=== PATIENT | female | born 1955 | race Caucasian/White ===

== ENCOUNTER → 2017-10-13 | Outpatient (CLI) | payer OTHER ==
[2017-10-13 12:03] LABS: BASO % 0.4 %; BASO ABS # 0.02 K/uL (0-0.2); COMPLETE YES; EOS % 3.4 %; IG% 0.2 %; LYMPH % 36.1 %; LYMPH ABS # 1.81 K/uL (1.2-3.4); MEAN CORPUSCULAR HEMOGLOBIN 30.3 pg (25-34); MEAN PLATELET VOLUME 10.8 fL (7.4-10.4); MONO % 7.2 %; NEUT % 52.7 %; PLATELET COUNT 257 K/uL (130-400); RED BLOOD COUNT 4.35 M/uL (4.2-5.4); WHITE BLOOD COUNT 5.01 K/uL (4.8-10.8)
[2017-10-13 12:48] LABS: BLOOD UREA NITROGEN 19 mg/dl (7-18); BUN/CREATININE RATIO 21.6 (10-20); CALCIUM 9.4 mg/dl (8.5-10.1); CARBON DIOXIDE 28 mmol/L (21-32); CHLORIDE 106 mmol/L (98-107); CREATININE 0.86 mg/dl (0.60-1.20); GLUCOSE 99 mg/dl (70-99); POTASSIUM 3.8 mmol/L (3.5-5.1); SODIUM 139 mmol/L (136-145)
[2017-10-13 12:59] LABS: CHOLESTEROL 275 mg/dl (0-200); CHOLESTEROL/HDL RATIO 2.7; HDL CHOLESTEROL 103 mg/dl; LDL CHOLESTEROL CALCULATED 146 mg/dl; TRIGLYCERIDES 129 mg/dl (0-150); VERY LOW DENSITY LIPOPROT CALC 26 mg/dl
== END | disposition home or self-care (01) ==
LOC: C.LAB1850 10:03
PROVIDERS: ATTEND Nurse Practitioner Adult Health
DX: E78.5 Hyperlipidemia, unspecified (principal); E53.9 Vitamin B deficiency, unspecified; E55.9 Vitamin D deficiency, unspecified; M81.0 Age-related osteoporosis without current pathological fracture; M25.50 Pain in unspecified joint

== ENCOUNTER → 2017-11-20 | Outpatient (CLI) | payer OTHER | END | disposition home or self-care (01) | LOC: C.MAMM 10:26 | PROVIDERS: ATTEND Nurse Practitioner Adult Health | DX: M85.88 Other specified disorders of bone density and structure, other site (principal); M85.852 Other specified disorders of bone density and structure, left thigh; M85.851 Other specified disorders of bone density and structure, right thigh; M19.90 Unspecified osteoarthritis, unspecified site; M25.50 Pain in unspecified joint ==

== ENCOUNTER → 2017-11-27 | Outpatient (CLI) | payer OTHER ==
[2017-11-27 10:30] LABS: URINE TOTAL VOLUME 1050 mL
[2017-11-27 14:22] LABS: URINE COLLECTION TIME 24 HOURS
[2017-11-27 14:22] LABS: URINE CALCIUM 24 HOUR (PT) 241.5 mg/24 HR (42-353); URINE TOTAL VOLUME 1050 mL
== END | disposition home or self-care (01) ==
LOC: C.LAB1850 10:17
DX: E55.9 Vitamin D deficiency, unspecified (principal); M81.0 Age-related osteoporosis without current pathological fracture; E61.8 Deficiency of other specified nutrient elements; M79.673 Pain in unspecified foot

== ENCOUNTER → 2017-12-02 | Outpatient (CLI) | payer OTHER ==
--- NOTE | 2017-12-03 15:40 | MAMMOGRAPHY REPORT ---
BILATERAL DIGITAL SCREENING MAMMOGRAM TOMOSYNTHESIS WITH CAD: 12/02/2017 CLINICAL HISTORY: Routine screening. Patient has no complaints. TECHNIQUE: Breast tomosynthesis in addition to standard 2D mammography was performed. Current study was also evaluated with a Computer Aided Detection (CAD) system. COMPARISON: No prior exams were available for comparison. BREAST COMPOSITION: There are scattered areas of fibroglandular density in both breasts. FINDINGS: No suspicious mass, architectural distortion or cluster of microcalcifications is seen. IMPRESSION: ACR BI-RADS CATEGORY 1: NEGATIVE There is no mammographic evidence of malignancy. Prior outside mammograms are currently being reques den and if obtained they will be reviewed, compared to the current exam to assess for any more subtle changes, and an addendum will be made to this report. Otherwise, a 1 year screening mammogram is re commended. The patient will receive written notification of the results. Approximately 10% of breast cancers are not detected with mammography. A negative mammographic report should not delay biopsy if a clinically suggestive mass is present. Cecelia Grande M.D. ay/:12/02/2017 17:01:26 Billet Cutter: Imani EDWARDS)([place]), [facility] letter sent: Normal 1/2 BI-RADS Code: ACR BI-RADS Category 1: Negative
== END | disposition home or self-care (01) ==
LOC: C.MAMM 14:28
PROVIDERS: ATTEND Obstetrics & Gynecology
DX: Z12.31 Encounter for screening mammogram for malignant neoplasm of breast (principal)

== ENCOUNTER → 2018-02-10 | Outpatient (CLI) | payer OTHER | END | disposition home or self-care (01) | LOC: C.PAPS 12:05 | PROVIDERS: ATTEND Obstetrics & Gynecology | DX: Z12.4 Encounter for screening for malignant neoplasm of cervix (principal) ==

== ENCOUNTER → 2018-06-10 | Day surgery (SDC) | payer OTHER ==
[2018-06-02 08:36] VITALS: Ht 157.5 cm; Wt 63.6 kg
[~2018-06-10] VITALS: Ht 157.5 cm; Wt 63.6 kg
[~2018-06-10] MED LIST: ASCO10003 PO; BIOTCAP2 PO; CALC-51 PO; CHOL1000 PO; CLR10 PO; COEN400C5 PO; FLUT0.15 INTNAS; GARL10007 PO; LIDOCAINE HCL 2% 2 ML VIAL (20MG/ML) ONE; MAGN400T6 PO; MULT-190 PO; OMEG10007 PO; PREMARIN TOP; PROPOFOL IV EMULSION 10 MG/ML 20 ML VIAL ONE; RED YEAST RICE PO; SODIUM CHLORIDE 0.9% 500ML 500 ML IV ONE; TURM1CAP4 PO; VITAMIN B 12 INJ
--- NOTE | 2018-06-10 11:46 | Endo History and Physical ---
History & Physical Date of Service: Jun 10, 2018. Chief Complaint: Change in bowel habits Referring Physician: Shelby Woodson History of Present Illness 62 yo CF who presents for colonoscopy secondary to change in bowel habits. Past Surgical History Hx Cardiac Surgery: No Hx Internal Defibrillator: No Hx Pacemaker: No Hx Abdominal Surgery: Yes (APPENDECTOMY, C SECTION X 2,LAPAROSCOPY,TUMMY TUCK) Hx of Implantable Prosthesis: No Hx Post-Op Nausea and Vomiting: Yes (SEVERE PONV) Hx Cancer Surgery: No Hx Thoracic Surgery: No Hx Orthopedic: No Hx Urinary Tract Surgery: No Family History IBD Social History Smoking Status: Former Smoker Hx Substance Use: No Hx Alcohol Use: Yes (DAILY WINE ) Allergies Coded Allergies: Cinnamon (Verified Allergy, Unknown, TINGLING IN MOUTH,CONGESTION, 06/10/18) Hydrocodone (Verified Allergy, Unknown, LOW BP,NAUSEA,SHAKINESS,COLD, ) Unclassified Drugs (Verified Allergy, Unknown, KETCHUP,MUSTARD-TINGLING IN MOUTH, 06/10/18) Current Medications Reported Home Medications Medications Dose Route/Sig Max Daily Dose Days Date Category Dose Instructions Vitamin D3 (Cholecalciferol) 1,000 Unit Tab 5,000 Units PO QAM 90 06/02/18 Reported Vitamin C (Ascorbic Acid) 1,000 Mg Tab 1,000 Mg PO QAM 06/02/18 Reported [place]-3 (Fish Oil) 1 Ea Cap 1 Cap PO QAM 06/02/18 Reported Garlic 1,000 Mg Cap 1,000 Mg PO QAM 06/02/18 Reported Coq10 (Coenzyme Q10 (Ubidecarenone)) 400 Mg Cap 400 Mg PO QAM 06/02/18 Reported [Premarin Cr] 1 Dose TOP WEEKLY 06/02/18 Reported VAGINAL CREAM Flonase Allergy Relief (Fluticasone Propionate (Nasal)) 50 Mcg/Act Spr 1 [place] INTNAS QAM 06/02/18 Reported Claritin (Loratadine) 10 Mg Tab 10 Mg PO QAM 06/02/18 Reported Turmeric (Turmeric (Curcuma Longa)) 500 Mg Cap 1,000 Mg PO QAM 06/02/18 Reported Biotin 5000 (Biotin) 5 Mg Cap 10,000 Mcg PO QAM 06/02/18 Reported [Calcium] 600 Mg PO QAM 06/02/18 Reported Mag-Ox (Magnesium Oxide) 400 Mg Tab 400 Mg PO QAM 06/02/18 Reported [Red Yeast Rice] 2 Tab PO QAM 06/02/18 Reported Ocuvite Preservision (Multivitamins/Minerals) 1 Tab Tab 1 Tab PO QAM 06/02/18 Reported [Vitamin B 12] 1 Dose INJ QMONTH 06/02/18 Reported Vital Signs Weight (Kilograms): 63.64 Height (Feet): 5 Height (Inches): 2 Physical Exam General Appearance: WD/WN, no apparent distress Respiratory/Chest: Auscultation: breath sounds normal Cardiovascular: Heart Auscultation: RRR Abdomen: Bowel Sounds: normal Inspection & Palpation: soft, non-distended, no tenderness, guarding & rebound Assessment and Plan Assessment: 62 yo CF who presents for colonoscopy secondary to change in bowel habits. Plan: Proceed with colonoscopy.
[2018-06-10 11:53] VITALS: TEMP 36.6
--- NOTE | 2018-06-10 12:44 | Discharge Instructions ---
Endoscopy Patient Instructions Date / Procedure(s) Performed Jun 10, 2018. Colonoscopy Allergy Information Coded Allergies: Cinnamon (Verified Allergy, Unknown, TINGLING IN MOUTH,CONGESTION, 06/10/18) Hydrocodone (Verified Allergy, Unknown, LOW BP,NAUSEA,SHAKINESS,COLD, ) Unclassified Drugs (Verified Allergy, Unknown, KETCHUP,MUSTARD-TINGLING IN MOUTH, 06/10/18) Discharge Date / Findings Jun 10, 2018. Random colon biopsies Internal hemorrhoids Medication Instructions OK to resume all medications today as prescribed Reported Home Medications Medications Dose Route/Sig Max Daily Dose Days Date Category Dose Instructions Vitamin D3 (Cholecalciferol) 1,000 Unit Tab 5,000 Units PO QAM 90 06/02/18 Reported Vitamin C (Ascorbic Acid) 1,000 Mg Tab 1,000 Mg PO QAM 06/02/18 Reported [place]-3 (Fish Oil) 1 Ea Cap 1 Cap PO QAM 06/02/18 Reported Garlic 1,000 Mg Cap 1,000 Mg PO QAM 06/02/18 Reported Coq10 (Coenzyme Q10 (Ubidecarenone)) 400 Mg Cap 400 Mg PO QAM 06/02/18 Reported [Premarin Cr] 1 Dose TOP WEEKLY 06/02/18 Reported VAGINAL CREAM Flonase Allergy Relief (Fluticasone Propionate (Nasal)) 50 Mcg/Act Spr 1 [place] INTNAS QAM 06/02/18 Reported Claritin (Loratadine) 10 Mg Tab 10 Mg PO QAM 06/02/18 Reported Turmeric (Turmeric (Curcuma Longa)) 500 Mg Cap 1,000 Mg PO QAM 06/02/18 Reported Biotin 5000 (Biotin) 5 Mg Cap 10,000 Mcg PO QAM 06/02/18 Reported [Calcium] 600 Mg PO QAM 06/02/18 Reported Mag-Ox (Magnesium Oxide) 400 Mg Tab 400 Mg PO QAM 06/02/18 Reported [Red Yeast Rice] 2 Tab PO QAM 06/02/18 Reported Ocuvite Preservision (Multivitamins/Minerals) 1 Tab Tab 1 Tab PO QAM 06/02/18 Reported [Vitamin B 12] 1 Dose INJ QMONTH 06/02/18 Reported Provider Instructions Activity Restrictions - No exercising or heavy lifting for 24 hours. - Do not drink alcohol the day of the procedure. - Do not drive a car or operate machinery until the day after the procedure. - Do not make any important decisions or sign important papers in 24 hours after the procedure. Following Day: - Return to full activity which may include returning to work/school. Diet Start your diet with liquids and light foods (jello, soup, juice, toast). Then eat your usual diet if not nauseated. Treatment For Common After Affects For mild abdominal pain, bloating, or excessive gas: - Rest - Eat lightly - Lie on right side Follow-Up Information Follow-up with Shelby ALEMAN as scheduled Anesthesia Information What You Should Know You have had a procedure that required some medicine to reduce anxiety and discomfort. This treatment is called moderate sedation. After receiving the treatment, you may be sleepy, but you will be able to breathe on your own. The effects of the treatment may last for several hours. Follow these instructions along with Activity/Diet recommendations noted above: * Do NOT do anything where dizziness or clumsiness would be dangerous. * Rest quietly at home today, then you can be up and about tomorrow. * Have a responsible person stay with you the rest of today. * You may have had an I.V. today. If so, you may take the dressing off later today. Recommendations Call your doctor if: * Trouble breathing * Continuous vomiting for more than 24 hours * Temperature above 101 degrees * Severe abdominal pain or bloating * Pain not relieved by pain medicine ordered * There is increased drainage or redness from any incision * A large amount of rectal bleeding greater than 2-3 tablespoons. (If you had a polyp/s removed or have hemorrhoids, a small amount of blood - from the rectum is to be expected.) * You have any unanswered questions or concerns. IN THE EVENT OF A SERIOUS EMERGENCY, GO TO THE NEAREST EMERGENCY ROOM Your discharge instructions were prepared by provider Tommy Acharya. Patient Instructions Signature Page Tiffany Resendiz Patient (or Guardian) Signature/Date: I have read and understand the instructions given to me by my caregivers. Caregiver/RN/Doctor Signature/Date: The above-named patient and/or guardian has received patient instructions on this date. + Original Patient Signature Page (only) stays with chart. Please make copy for patient.
[2018-06-10 13:22] VITALS: BP 113/69; PULSE 52; O2SAT 100
--- NOTE | 2018-06-10 13:30 | GI REPORT ---
Patient Name: Tiffany Resendiz Procedure Date: 06/10/2018 12:07 PM Date of : 1955 Admit Type: Outpatient Age: 62 Gender: Female Attending MD: Tommy Acharya DO Procedure: Colonoscopy Providers: Tommy Acharya DO Referring MD: Shelby Woodson Indications: Change in bowel habits Medicines: Monitored Anesthesia Care Complications: No immediate complications. Estimated Blood Loss: Estimated blood loss: none. Procedure: Pre-Anesthesia Assessment: - Prior to the procedure, a History and Physical was performed, and patient medications and allergies were reviewed. The patient's tolerance of previous anesthesia was also reviewed. The risks and benefits of the procedure and the sedation options and risks were discussed with the patient. All questions were answered, and informed consent was obtained. Prior Anticoagulants: The patient has taken no previous anticoagulant or antiplatelet agents. ASA Grade Assessment: I - A normal, healthy patient. After reviewing the risks and benefits, the patient was deemed in satisfactory condition to undergo the procedure. After I obtained informed consent, the scope was passed under direct vision. Throughout the procedure, the patient's blood pressure, pulse, and oxygen saturations were monitored continuously. The scope was introduced through the anus and advanced to the terminal ileum. The colonoscopy was performed without difficulty. The patient tolerated the procedure well. The quality of the bowel preparation was good. The terminal ileum, ileocecal valve, appendiceal orifice, and rectum were photographed. Findings: The perianal and digital rectal examinations were normal. The colon (entire examined portion) appeared normal. Several random biopsies were obtained with cold forceps for histology in the entire colon. Non-bleeding internal hemorrhoids were found during retroflexion. The hemorrhoids were small. Impression: - The entire examined colon is normal. - Non-bleeding internal hemorrhoids. - Several random biopsies were obtained in the entire colon. Recommendation: - Resume previous diet. - Continue present medications. - Repeat colonoscopy for surveillance based on pathology results. - Return to primary care physician as previously scheduled. Tommy Acharya DO 06/10/2018 1:30:12 PM This report has been signed electronically. Note Initiated On: 06/10/2018 12:07 PM Number of Addenda: 0 I attest to the content of the Intraoperative Record and orders documented therein, exceptions below {[id number]}
--- NOTE | 2018-06-10 14:23 | Anesthesiology Progress Note ---
Anesthesia Post Op Note Date & Time Jun 10, 2018 at 14:23 Vital Signs Pain Intensity: 0 Vital Signs Past 12 Hours Date Time Temp Pulse Resp B/P (MAP) Pulse Ox O2 Delivery O2 Flow Rate FiO2 06/10/18 13:22 52 16 113/69 (84) 100 Room Air 06/10/18 13:08 59 16 112/68 (83) 99 Room Air 06/10/18 13:01 55 16 94/54 (67) 96 Room Air 06/10/18 12:49 59 16 81/50 (60) 59 Room Air 06/10/18 11:53 36.6 64 16 109/75 (86) 64 Room Air Notes Mental Status: alert / awake / arousable, participated in evaluation Pt Amnestic to Procedure: Yes Nausea / Vomiting: adequately controlled Pain: adequately controlled Airway Patency, RR, SpO2: stable & adequate BP & HR: stable & adequate Hydration State: stable & adequate Anesthetic Complications: no major complications apparent
== END | disposition home or self-care (01) ==
LOC: C.GI 11:16
PROVIDERS: ATTEND Internal Medicine
DX: R19.4 Change in bowel habit (principal); K64.8 Other hemorrhoids; K21.9 Gastro-esophageal reflux disease without esophagitis; M19.90 Unspecified osteoarthritis, unspecified site; Z87.891 Personal history of nicotine dependence; Z88.5 Allergy status to narcotic agent; Z83.79 Family history of other diseases of the digestive system